=== PATIENT | female | born 1990 | race American Indian/Alaskan Native ===

== ENCOUNTER 2017-05-05 23:04 | Emergency (ER) | payer OTHER ==
[2017-05-06] MEDS ORDERED: MORPHINE IV ONE (00:23)
[2017-05-06] MEDS ORDERED: NACL 0.9% 1000 ML 1,000 ML IV ONE (00:24)
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
--- NOTE | 2017-05-06 01:35 | Cat Scan Report ---
FINAL REPORT EXAM: CT CERVICAL SPINE WO CON HISTORY: UPPER NECK TENDERNESS TECHNIQUE: Routine axial imaging was obtained of the cervical spine without IV contrast with sagittal and coronal reconstructions. FINDINGS: The disc heights and alignment appear normal. The canal size is normal. The nerve roots exit normally. There is no evidence of fracture. The pre vertebral soft tissues and C1-C2 articulation appear intact. IMPRESSION: Within normal limits.
--- NOTE | 2017-05-06 01:53 | Cat Scan Report ---
FINAL REPORT EXAM: CT THORACIC SPINE WO CON HISTORY: Upper back pain TECHNIQUE: Routine axial imaging was obtained of the thoracic spine without IV contrast with sagittal and coronal reconstructions. FINDINGS: The disc heights and alignment appear normal. The canal size is normal. There is no evidence of fracture. The paraspinal soft tissue lines are well maintained. IMPRESSION: Within normal limits.
--- NOTE | 2017-05-06 08:06 | XRay Report ---
AP CHEST : 05/06/17 CLINICAL: Chest pain. COMPARISON:None FINDINGS: Normal heart and pulmonary vessels. The lungs are normally expanded and clear. The bones and soft tissues are unremarkable. IMPRESSION: Normal chest.
== END 2017-05-06 04:42 | disposition home or self-care (01) ==
LOC: ED 23:04
DX: S13.9XXA Sprain of joints and ligaments of unspecified parts of neck, initial encounter (principal); R51 Headache; S23.3XXA Sprain of ligaments of thoracic spine, initial encounter; V49.49XA Driver injured in collision with other motor vehicles in traffic accident, initial encounter; Y93.89 Activity, other specified; Y92.89 Other specified places as the place of occurrence of the external cause; Y99.8 Other external cause status
CPT/HCPCS: 36415; 70450; 71010; 72125; 72128; 84703; 96361; 96374; 99284; J2270; J7030